=== PATIENT | female | born 1935 | race Caucasian/White ===

== ENCOUNTER 2017-02-17 17:37 | Emergency (ER) | payer MEDICARE ==
[~2017-02-17] VITALS: Ht 152.4 cm; Wt 68.2 kg
[2017-02-17 17:47] VITALS: BP 159/75; PULSE 57; RESP 16; O2SAT 96
[2017-02-17 19:08] LABS: BASOPHILS % (AUTO) 0.5 % (0-3); EOSINOPHILS % (AUTO) 6.2 % (0-5); Mean Corpuscular Hemoglobin 30.5 pg (27.0-35.0); Mean Corpuscular Volume 89.9 fL (81-100); NEUTROPHILS % (AUTO) 64.1 % (40-74); Platelet Count 154 bil/L (150-400)
--- NOTE | 2017-02-17 19:31 | ED.REPORT ---
HPI-Abd Pain F 40 and Over Date of Service Feb 17, 2017 ED Provider: Rhett Sandhu MD Patient is a 81 year old female who presents to the ED complaining of diarrhea onset 3 days ago. Associated symptoms include chills, generalized weakness, nausea and anorexia. She denies abdominal pain,vomiting, lightheadedness, dysuria, fever or hematochezia. The patient reports that has not been in contact with anyone that has diarrhea, has not been on recent antibiotics or had any recent travels. Patient states that the diarrhea wakes her up at night and is yellow and watery. The patient normally takes 3 Percocets a day for chronic back pain for the past year but cut back yesterday because she thought maybe that was contributing. Nursing Notes Stated Complaint: ILL FOR 3 DAYS Chief Complaint: Female Abdominal Pain Nursing Notes Reviewed: Yes Allergies: Coded Allergies: No Known Allergies (Unverified , 02/17/17) Scheduled Ondansetron ODT (Ondansetron ODT) 4 Mg Tab.rapdis 4 MG PO QID General Time Seen by MD: 19:28 Chief Complaint Other (diarrhea) Hx Obtained From: Patient Arrived By: Walk-in Sudden in Onset?: Yes Onset Occurred: 3 days ago Symptom Duration: Since onset Severity: Current: No pain currently Associated with: Reports: Chills Similar Sx Previous: No Past Medical History Past Medical History chronic back pain thyroid Past Surgical History Reports: Hysterectomy Smoking History Unknown if Ever Smoker Social History Other Social History: Good social support Ambulatory Status Independent Review of Systems Constitutional: Reports: Chills, Denies: Fever GI: Reports: Anorexia, Diarrhea, Nausea, Denies: Abdominal pain, Bloody/tarry stool, Hematochezia, Vomiting Female: Denies: Dysuria Complete sys rev & neg: except as marked. Neurologic: Denies: Lightheaded Physical Exam Vital Signs Vital Signs (First) Date Time Temp Pulse Resp B/P Pulse Ox O2 Delivery O2 Flow Rate FiO2 02/17/17 17:47 36.8 57 16 159/75 96 Room Air Initial VS: Reviewed General/Constitutional: Awake, Alert Respiratory / Chest: Atraumatic, Breath sounds NL, Breath sounds = bilat, No respiratory distress Cardiovascular: Heart rate NL, Regular rhythm, Heart sounds NL, No gallop, No murmurs, No rubs Abdomen: Atraumatic, Soft, No guarding, No rebound, BS normoactive, No palpable mass mild left lower quadrant tenderness midline surgical scar Back: Atraumatic, No CVA tenderness Head / Eyes: Atraumatic, Normocephalic ENT: Atraumatic, Airway patent, Mucous membranes moist Skin: Atraumatic, Color NL, No rash, Warm, Dry Neurologic: Oriented X3, Speech NL Upper Extremity / MS: Atraumatic, Full range of motion Psychiatric: Affect NL, Mood NL Interpretation & Diagnostics Lab Results Interpretation Result Diagram: 02/17/170 02/17/171899 Test 02/17/17 19:00 02/17/17 21:12 White Blood Count 5.8th/mm3 (3.8-10.1) Red Blood Count 4.06mil/mm3 (3.90-5.20) Hemoglobin 12.4g/dL (12.0-15.6) Hematocrit 36.5% (35.0-46.0) Mean Corpuscular Volume 89.9fL (81-100) Mean Corpuscular Hemoglobin 30.5pg (27.0-35.0) Mean Corpuscular Hemoglobin Concent 34.0% (32.0-37.0) Red Cell Distribution Width 13.8% (12.3-15.4) Platelet Count 154bil/L (150-400) Neutrophils (%) (Auto) 64.1% (40-74) Lymphocytes (%) (Auto) 18.0% (14-46) Monocytes (%) (Auto) 11.0% (4-12) Eosinophils (%) (Auto) 6.2% (0-5) Basophils (%) (Auto) 0.5% (0-3) Sodium Level 138mEq/L (134-144) Potassium Level 3.3mEq/L (3.5-5.2) Chloride Level 98mEq/L (97-108) Carbon Dioxide Level 27mmol/L (18-29) Blood Urea Nitrogen 15mg/dL (8-27) Creatinine 0.64mg/dL (0.57-1.00) Estimat Glomerular Filtration Rate 128mL/min (>59) Glucose Level 90mg/dL (60-99) Calcium Level 9.5mg/dL (8.5-10.1) Total Bilirubin 0.5mg/dL (0.0-1.2) Aspartate Amino Transf (AST/SGOT) 25U/L (0-50) Alanine Aminotransferase (ALT/SGPT) 15U/L (0-32) Alkaline Phosphatase 63U/L (25-165) Total Protein 6.6g/dL (6.4-8.4) Albumin 4.0g/dL (3.4-5.0) Hold Wade Top Tube Received (Received) Urine Color Yellow (YELLOW) Urine Appearance Clear (CLEAR,HAZY) Urine pH 6.0 (5.0-8.0) Urine Specific [place] 1.010 (1.003-1.035) Urine Protein Negativemg/dL (NEG,TRACE) Urine Glucose (UA) Negativemg/dL (NEGATIVE) Urine Ketones Negativemg/dL (NEGATIVE) Urine Occult Blood Trace (NEGATIVE) Urine Nitrite Negative (NEGATIVE) Urine Bilirubin Negative (NEGATIVE) Urine Urobilinogen Normalmg/dL (NORMAL) Urine Leukocyte Esterase Moderate (NEGATIVE) Urine RBC 3-10/hpf (0-2) Urine WBC 11-50/hpf (0-5) Urine Epithelial Cells Occasional/hpf (NONE-MOD) Urine Crystals None seen (NONE SEEN) Urine Bacteria Few/hpf (NONE-FEW) Urine Hyaline Casts None/lpf (NONE) Urine Granular Casts None seen (NONE SEEN) Urine Waxy Casts None seen (NONE SEEN) Urine Red Blood Cell Casts None seen (NONE SEEN) Urine White Blood Cell Casts None seen (NONE SEEN) Urine Mucus Present (None Seen) Urine Trichomonas None seen (NONE SEEN) Urine Yeast None (NONE SEEN) Urinalysis Comment None Urine Culture Reflexed Indicated Re-Eval/Medical Decision Re-Evaluation/Progress : Time of Eval: 22:15 Re-Evaluation/Progress Note: Patient has been unable to provide a stool sample. Discussed plan for discharge. Patient understands and agrees to plan. All questions were addressed. Counseled Regarding: Diagnosis, Lab results, Need for follow-up, When/why to return to ED Discharge & Departure Primary Impression: Diarrhea Diarrhea type: unspecified type Qualified Code: R19.7 - Diarrhea, unspecified Disposition: Home Discharge Condition All VS Reviewed: Yes Condition: Stable Patient Instructions: Acute Diarrhea (ED) Additional Instructions: Your emergency department evaluation included an interview, examination and labs. We were unable to collect stool over a 4 hour stay. UA was concerning for a UTI, but given no symptoms, this is not treated. We sent a urine culture , please call in 2 days for results. We noted mild low potassium, we gave oral potassium tonight and this should get better if you are able to eat and diarrhea improves. Be sure to drink plenty of fluids, add solid food as able, ondansetron as needed for nausea. Follow up with your primary care physician next week. Return to the emergency department if you develop any new or concerning symptoms including fevers, vomiting, bloody diarrhea or worsening/new symptoms. Referrals: Maya Morataya MD (PCP) Netta Attestation Portions of this note were transcribed by Akua Butler. I, Dr. Sandhu personally performed the history, physical exam and medical decision-making; I reviewed and confirmed the accuracy of the information in the transcribed note. Signed by: Netta Blackwell, 02/17/17 copies to: Maya Morataya MD, Donald L MD Feb 17, 2017 19:31 Mirian Butler Feb 17, 2017 19:40
[2017-02-17] MEDS ORDERED: 0.9% Sodium Chloride 1,000 ML IV ONE (19:50)
[2017-02-17] MEDS ORDERED: Potassium Chloride 20 mEq/15 mL 15mL Oral Soln PO ONE (19:50)
[2017-02-17 21:44] LABS: APPEARANCE,URINE CLEAR (CLEAR,HAZY); COLOR,URINE YELLOW (YELLOW); OCCULT BLOOD,URINE TRACE (NEGATIVE); UROBILINOGEN,URINE NORMAL (NORMAL)
[2017-02-17 21:45] VITALS: BP 145/68; PULSE 55; O2SAT 97
[2017-02-17 21:46] VITALS: BP 141/71; PULSE 59; O2SAT 96
[2017-02-17 21:47] VITALS: BP 143/58; PULSE 65; O2SAT 96
[2017-02-17] MEDS ORDERED: ONDA4TAB12 PO (22:16)
== END 2017-02-17 22:28 | disposition home or self-care (01) ==
LOC: SED 17:37
DX: R19.7 Diarrhea, unspecified (principal); R63.0 Anorexia; R11.0 Nausea; R68.83 Chills (without fever); R53.1 Weakness; E07.9 Disorder of thyroid, unspecified; Z90.710 Acquired absence of both cervix and uterus
CPT/HCPCS: 36415; 80053; 81000; 85025; 87086; 87088; 99284; J7030